=== PATIENT | female | born 1995 | race Caucasian/White ===

== ENCOUNTER 2017-01-30 06:11 | Day surgery (SDC) | payer OTHER ==
--- NOTE | ~2017-01-30 | OP ---
Record Of Operation [facility] [address] [place]. [address] NAME: LAURYN OLEARY : [birth year] STATUS : [facility]#: [id number] AGE: 21 ADM/REG DATE : 01/30/17 MR#: [id number] REPORT SERV DATE: 01/31/17 DICTATED BY: YAHIR BA DATE: 01/31/17 REPORT STATUS : Draft TRANSCRIBED BY: SJ DATE: 01/31/17 DATE OF PROCEDURE: 01/30/2017 PREOPERATIVE DIAGNOSIS: Right chronic otitis media. POSTOPERATIVE DIAGNOSIS: Right chronic otitis media. OPERATIVE PROCEDURES PERFORMED: Right myringotomy and ventilation tube placement with T- tube. INDICATIONS AND SIGNIFICANT HISTORY: The patient is a 21-year-old female with a significant history of chronic otitis media, who underwent CT scanning that failed to demonstrate any significant cholesteatoma; however, she has continued to have marked tympanic membrane retraction and occasional otorrhea. She was felt to benefit from tube placement to hopefully help with any retraction and was scheduled for such. OPERATIVE PROCEDURE AND FINDINGS: After informed consent was obtained, the patient was brought to the operating room and placed on the operating table in the supine position, at which point, general endotracheal anesthesia was induced by the Anesthesia Service and the operating microscope was wheeled in place above the patient's right ear. The right ear was cleaned of debris and there was noted to be a large granulation polyp and a deep retraction pocket in the posterior superior quadrant of the tympanic membrane. This was removed with a suction and came out in its entirety. At this point, an anterior inferior myringotomy was performed. A shallow middle ear space was encountered and a mucoid effusion was encountered. The mucoid effusion was suctioned from the middle ear space and a Michelle-type T tube was inserted into the myringotomy to straddle the drum. The canal was flooded with Floxin drops. The patient was turned back toward anesthesia, aroused from anesthesia, and taken to the postanesthesia care unit in satisfactory condition. COMPLICATIONS: None. ESTIMATED BLOOD LOSS: Less than 3 mL. IV FLUIDS: Per Anesthesia. DLA/SJ Yahir Ba M.D. / [id number] CC: Yahir Ba M.D.
[~2017-01-30 06:11] MED LIST: *DENIES; CLARIT10 PO
== END 2017-01-30 11:46 | disposition home or self-care (01) ==
LOC: SDC 06:11
PROVIDERS: Otolaryngology
PROC: 099500Z Drainage of Right Middle Ear with Drainage Device, Open Approach (ICD-10-PCS; principal; 2017-01-30 07:30)
DX: H66.91 Otitis media, unspecified, right ear (principal); H74.41 Polyp of right middle ear; E66.9 Obesity, unspecified; Z68.36 Body mass index [BMI] 36.0-36.9, adult; F17.210 Nicotine dependence, cigarettes, uncomplicated; Z88.1 Allergy status to other antibiotic agents; Z90.49 Acquired absence of other specified parts of digestive tract; Z79.2 Long term (current) use of antibiotics; Z98.890 Other specified postprocedural states
CPT/HCPCS: 84703; A9270-GY; J2250; J2270; J2405; J3010